=== PATIENT | male | born 1990 | race Caucasian/White ===

== ENCOUNTER 2016-03-28 15:15 | Emergency (ER) | payer OTHER ==
[2016-03-28] MEDS ORDERED: IOPAMIDOL 300 (61%) 150 ML VIAL IV ONE (15:16)
[2016-03-28] MEDS ORDERED: NALBUPHINE HCL 10 MG/ML AMP ONE (17:12)
[2016-03-28] MEDS ORDERED: ONDANSETRON 4 MG/2ML 2 ML VIAL ONE (17:12)
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
[2016-03-28 17:30] LABS: BASO # 0.1 K/mm3 (0.0-0.2); BASO % 0.9 % (0.2-1.0); EOS % 0.5 % (0.9-2.9); HEMATOCRIT 43.5 % (32.0-52.0); IMM NEUT% 0.2 % (0-1); LYMPH # 1.4 (1.0-4.8); LYMPH % 16.8 % (15-45); MEAN CELL VOLUME 95.8 fl (80.0-94.0); MEAN CORPUSCULAR HGB CONC 34.5 g/dl (33.0-37.0); MEAN PLATELET VOLUME 9.7 fl (7.4-10.4); MONO # 0.6 (0.0-0.8); MONO % 7.2 % (4-12); NEUT % 74.4 % (43-75); PLATELET COUNT 236 K/mm3 (130-400); RED CELL DISTRIBUTION WIDTH 12.1 % (11.5-14.5)
[2016-03-28 17:33] LABS: SPECIFIC GRAVITY 1.015 (1.001-1.030); URINE BILIRUBIN NEGATIVE (NEGATIVE); URINE BLOOD NEGATIVE (NEGATIVE); URINE GLUCOSE (UA) NEGATIVE (NEGATIVE); URINE LEUKOCYTE ESTERASE NEGATIVE (NEGATIVE); URINE NITRITE NEGATIVE (NEGATIVE); URINE PROTEIN NEGATIVE (NEGATIVE); URINE UROBILINOGEN NORMAL (0-1 mg/dl)
[2016-03-28 17:34] LABS: URINE APPEARANCE CLEAR; URINE COLOR YELLOW
[2016-03-28 17:39] LABS: ALB/GLOB RATIO 1.7 (>1.0); ALBUMIN 4.3 gm/dL (3.5-5.7); CALCIUM 9.2 mg/dL (8.6-10.3)
== END 2016-03-28 17:32 | disposition home or self-care (01) ==
LOC: ED 15:15
DX: S16.1XXA Strain of muscle, fascia and tendon at neck level, initial encounter (principal); R51 Headache; R10.9 Unspecified abdominal pain; V43.52XA Car driver injured in collision with other type car in traffic accident, initial encounter; Y92.410 Unspecified street and highway as the place of occurrence of the external cause